=== PATIENT | male | born 1960 | race Caucasian/White ===

== ENCOUNTER 2017-02-19 08:25 | Day surgery (SDC) | payer OTHER ==
[~2017-02-19] VITALS: Ht 172.7 cm; Wt 90.7 kg
[2017-02-19] VITALS (8 sets, daily range): BP systolic 159–175; BP diastolic 101–118
[~2017-02-19 08:25] MED LIST: AMBIEN 10MG TAB10 MG PO; GABAPENTIN 400400 MG PO; TRAMADOL 50MG T50 M1 PO
[2017-02-19] MEDS ORDERED: BYSTOLIC5 MG PO (09:16)
[2017-02-19] MEDS ORDERED: CLARITHROMYCIN500 MG PO (09:17)
[2017-02-19] MEDS ORDERED: FLAGYL 250MG.250 MG PO (09:17)
[2017-02-19 09:31] LABS: AMPHETAMINES/METAMPHETAMINES NEGATIVE ng/mL (<1000)
--- NOTE | 2017-02-19 11:31 | Procedure Note ---
Procedure detail Date of procedure: 02/19/17 Anesthesiologist: Carloz Nickerson M.D. 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 He has had previous anterior cervical neck fusion. This was in 2010. Most of his pain now is in the low back with radiation of both legs. He has failed all previous conservative therapies including injections, oral medications, radiofrequency ablation and physical therapy. He is not a surgical candidate for his low back pain. I believe he is a good candidate for intrathecal therapy. We will plan on intrathecal pump trial today. Procedure detail: Informed consent was obtained and the risk and benefits of the procedure was explained to the patient. The patient was taken to the procedure room. He was placed prone on the procedure table. He was prepped and draped in sterile fashion. C-arm fluoroscopy was used to view the lumbar spine. The skin and subcutaneous tissues were anesthetized using lidocaine. A 17-gauge spinal needle was inserted and advanced into the L4-L5 interspace until clear CSF was obtained. After this intrathecal catheter was inserted very easily to the L1 vertebral body. The needle was withdrawn. We were able to freely withdraw clear CSF through the catheter. The catheter was secured in place and the patient was brought back to the recovery room in stable condition. He tolerated the procedure well with no complications. After 1 set of vitals we bolused the patient with fentanyl 25 g over 5 minutes. Patient's functionality and pain score were assessed after 30 minutes. Patient had 90-100 percent relief in his pain symptoms and he was much more functional. Patient wants to proceed with permanent placement. We will have him see Dr. Lopez for evaluation of permanent placement. We will also follow up on his neuropsychological evaluation. We will plan on permanent placement with intrathecal Dilaudid 1 mg per mL to start at 0.1 mg per day. Plan and disposition: We will plan on permanent placement with intrathecal Dilaudid 1 mg per mL to start at 0.1 mg per day. We will discharge patient home today. Catheter was pulled without complication. We will follow-up with this patient and plan on permanent placement of intrathecal pain pump. We will follow-up on her psychological evaluation. We will also have him see Dr. Lopez. at [phone]
== END 2017-02-19 11:05 | disposition home or self-care (01) ==
LOC: LAB 08:25 → PM 08:25
PROVIDERS: Anesthesiology
PROC: 3E0R3BZ Introduction of Anesthetic Agent into Spinal Canal, Percutaneous Approach (ICD-10-PCS; principal; 2017-02-19)
DX: M51.16 Intervertebral disc disorders with radiculopathy, lumbar region (principal)

== ENCOUNTER → 2017-03-18 | Outpatient (CLI) | payer OTHER ==
[~2017-03-18] MED LIST changes: +BYSTOLIC5 MG PO; +CLARITHROMYCIN500 MG PO; +FLAGYL 250MG.250 MG PO
[2017-03-18 10:47] LABS: HEMOGLOBIN 16.1 g/dL (14.1-18.0); LYMPH # 1.8 K/mm3 (0.7-4.5); LYMPH % 28.3 % (10-50)
[2017-03-18 11:47] LABS: BUN 22 mg/dL (7-18)
[2017-03-18 11:50] LABS: GFR (ESTIMATED) 58 ML/MIN (>60)
== END ==
LOC: LAB 10:13
PROVIDERS: Anesthesiology
DX: M51.36 Other intervertebral disc degeneration, lumbar region (principal); Z01.812 Encounter for preprocedural laboratory examination

== ENCOUNTER → 2017-06-01 | Outpatient (CLI) | payer OTHER ==
[2017-06-01 12:39] LABS: HEMOGLOBIN 15.4 g/dL (14.1-18.0); LYMPH % 30.2 % (10-50)
[2017-06-01 14:04] LABS: BUN 16 mg/dL (7-18); GFR (ESTIMATED) 58 ML/MIN (>60)
== END ==
LOC: LAB 12:20
PROVIDERS: Anesthesiology
DX: M51.36 Other intervertebral disc degeneration, lumbar region (principal); Z01.818 Encounter for other preprocedural examination

== ENCOUNTER 2017-06-16 06:55 | Day surgery (SDC) | payer OTHER ==
[~2017-06-16] VITALS: Ht 172.7 cm; Wt 90.7 kg
--- NOTE | 2017-06-16 09:59 | Operative Note ---
Surgeon/Diagnoses Surgeon/Office Systems Technology Instructor(s) Date of procedure: 06/16/17 Surgeon: Ronnie Dickerson MD Diagnoses Pre-op diagnosis: Degenerative disc disease of lumbar spine, lumbar radiculopathy, postlaminectomy syndrome with anterior cervical neck fusion Post-op diagnosis Same Procedure Procedure Procedure: implantation of pain pump generator Indications: MEME HIGH is a 56 year-old Male with a history of pain secondary to degenerative disc disease of lumbar spine with lumbar radiculopathy and post laminectomy syndrome with anterior cervical neck fusion Findings: Not applicable Procedure Description: Patient was placed prone on the operating table in the back and flank regions were prepped and draped in a sterile fashion. Once adequate IV sedation is obtained anesthesia and local anesthesia was 1 percent Xylocaine with epinephrine a paraspinal incision was made by through which an intrathecal catheter was passed into the intrathecal space to the area desired by . Catheter 6 the paraspinal fascia with the fixation device and 2-0 Prolene sutures. LEFT flank incision was then made and was made a pocket replacement the reservoir. Catheter was passed from the paraspinal incision of the pocket incision was tunneling device. . CSF was aspirated from the generator noted patency of the system. Subcu Tissues closed with 2-0 Vicryl after irrigation with antibiotic solution. Skin closing sutures of 4-0 nylon. Skin glue applied to the incision as well as dressings and binder. The patient punctures well to exertion. Upon recovery the patient will be discharged EBL (ml): 5 Anesthesia: LMAC Complications: None Disposition Disposition: Upon recovery the patient will be discharged home with follow-up in approximately 2 weeks for suture we will. Wound care instructions the patient prior to discharge. The patient will contact us for redness pain drainage or any other concerns. Bactrim 1 week written for the patient. Patient thought procedure well at [phone]
--- NOTE | 2017-06-16 10:01 | Operative Note ---
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 He is also had a previous anterior cervical neck fusion. Most of his pain is in the low back with radiation to both legs. He has failed all conservative therapy including physical therapy, injections, oral medications and he is not a surgical candidate for his low back pain. He had a successful intrathecal pump trial with 90-100 percent relief of his pain symptoms. He is also had a successful classical evaluation. We'll plan on permanent placement of intrathecal pain pump today. I have explained the risks and benefits and answered all questions. Findings: None Procedure Description: Informed consent was obtained and the risk and benefits of the procedure was explained to the patient. The patient was placed prone on the procedure table. The patient was prepped and draped in sterile fashion. C-arm fluoroscopy was used to view the lumbar spine. The skin and septated tissues adjacent to the L4- L5 and L5-S1 interspace were anesthetized using lidocaine. I made an incision and dissected down to lumbar paraspinous fascia. I placed a 17-gauge spinal needle and advanced into the L5-S1 interspace until clear CSF was obtained. After this intrathecal catheter was inserted and advanced very easily to the L1 vertebral body. The stylette of the catheter was withdrawn. The needle was withdrawn. The catheter was secured to the lumbar paraspinous fascia with an anchoring device and 2-0 Prolene. I prepared the pump with 20 mL of intrathecal Dilaudid 1 mg per mL while Dr. Lopez prepared the pump pocket. I tunneled the catheter from the back to the pump pocket and attached the catheter to the pump. The pump was placed in the pump pocket. Both incisions were irrigated with bacitracin. The pump was secured to the fascia with 2-0 Prolene. Both incisions were then closed with 2-0 Vicryl followed by 4-0 nylon. Dermabond was placed. Dressings were placed and the patient was taken to recovery in stable condition. Patient tolerated the procedure well with no complications. EBL (ml): 5 Anesthesia: LMAC Implants: Flowonix pain pump and intrathecal catheter Complications: None Disposition Disposition: We will follow-up with this patient in 2 weeks to make adjustments. The patient and the patient's family were counseled on side effects and the risk of oversedation. If the patient experiences any side effects orsigns or symptoms of oversedation they are to go to the nearest emergency room and call us in the pain clinic. If patient has any problems they are to call us in the pain clinic. at [phone]
[2017-06-16 14:41] VITALS: BP 131/94
== END 2017-06-16 11:18 | disposition home or self-care (01) ==
LOC: SDC 06:55
PROVIDERS: Anesthesiology
PROC: 0JH70VZ Insertion of Infusion Pump into Back Subcutaneous Tissue and Fascia, Open Approach (ICD-10-PCS; 2017-06-16)
PROC: 00HU03Z Insertion of Infusion Device into Spinal Canal, Open Approach (ICD-10-PCS; principal; 2017-06-16 09:00)
DX: M51.16 Intervertebral disc disorders with radiculopathy, lumbar region (principal); M96.1 Postlaminectomy syndrome, not elsewhere classified; M43.22 Fusion of spine, cervical region
CPT/HCPCS: C1755; C1772; J3370